=== PATIENT | female | born 1995 | race Hispanic/Latino ===

== ENCOUNTER 2017-04-06 19:46 | Emergency (ER) | payer MEDICAID | END 2017-04-06 20:30 | disposition home or self-care (01) | LOC: EDH 19:46 | DX: S43.491A Other sprain of right shoulder joint, initial encounter (principal); W18.39XA Other fall on same level, initial encounter; Y93.89 Activity, other specified; Y92.89 Other specified places as the place of occurrence of the external cause; Y99.8 Other external cause status | CPT/HCPCS: 73030 ==

== ENCOUNTER 2018-02-06 16:46 | Emergency (ER) | payer MEDICAID ==
[2018-02-06 17:51] LABS: RAPID GROUP A STREP NEGATIVE (NEGATIVE)
== END 2018-02-06 18:01 | disposition home or self-care (01) ==
LOC: EDH 16:46
DX: J06.9 Acute upper respiratory infection, unspecified (principal); G44.209 Tension-type headache, unspecified, not intractable
CPT/HCPCS: 87804; 87880

== ENCOUNTER 2018-08-29 18:47 | Emergency (ER) | payer MEDICAID | END 2018-08-29 19:42 | disposition home or self-care (01) | LOC: EDH 18:47 | DX: S93.432A Sprain of tibiofibular ligament of left ankle, initial encounter (principal); X50.1XXA Overexertion from prolonged static or awkward postures, initial encounter; Y93.89 Activity, other specified; Y92.89 Other specified places as the place of occurrence of the external cause; Y99.8 Other external cause status | CPT/HCPCS: 73610 ==